=== PATIENT | female | born 1950 | race Caucasian/White ===

== ENCOUNTER 2019-06-03 05:26 | Emergency (ER) | payer BC, MEDICARE ==
[2019-06-03] MEDS ORDERED: Ondansetron INJ* 2 MG/ML VIAL IV ONE (05:46)
[2019-06-03] MEDS ORDERED: NS 0.9% 1000 ML** 1,000 ML IV ONE (05:46)
--- NOTE | 2019-06-03 05:50 | ED ---
Adult Trauma - HPI Summary HPI Summary: Pt. is a 68 y.o female who presents to the ER for evaluation after a fall. Pt. lives along. Pt. states she this morning she slipped and fell while getting out of hte shower. Pt. states she landed on her right shoulder. Pt. states she had immediate right shoulder pain which she states caused her to syncopize. Pt. states she was incontinent of urine. Pt. states when she has extreme pain she always passes out and that has been going on since she was a child pt. states. Pt. denies CP, SOB, abd. pain, numbness, tingling, or weakness, Pt. notes N/V. Hx of asthma otherwise no past medical hx. Sxs are moderate in severity. No current modifying factors. - History of Current Complaint Chief Complaint: EDShoulderClavicleInj Stated Complaint: NAUSEA PER EMS Time Seen by Provider: 06/03/19 05:36 Hx Obtained From: Patient Pain Intensity: 10 - Allergy/Home Medications Allergies/Adverse Reactions: Allergies Allergy/AdvReac Type Severity Reaction Status Date / Time codeine Allergy Unknown Verified 06/03/19 05:42 Reaction Details meperidine [From Demerol] Allergy Unknown Verified 06/03/19 05:42 Reaction Details morphine Allergy Unknown Verified 06/03/19 05:43 Reaction Details pain medications Allergy Unknown Uncoded 06/02/15 03:56 Reaction Details Home Medications: Home Medications Fluticasone HFA 110 mcg(NF) [Flovent HFA 110 mcg(NF)] 1 puff PO DAILY 06/03/19 [ History Confirmed 06/03/19] PMH/Surg Hx/FS Hx/Imm Hx Previously Healthy: Yes Cardiovascular History: Denies: Hx Hypertension Respiratory History: Reports: Hx Chronic Obstructive Pulmonary Disease (COPD) Musculoskeletal History: Reports: Hx Osteoporosis - Surgical History Surgery Procedure, Year, and Place: HYSTERECTOMY; TONSILLECTOMY; CARPAL TUNNEL - BI-LAT; ROTATOR CUFF-LT ; Infectious Disease History: No Infectious Disease History: Denies: Traveled Outside the [place] in Last 30 Days - Family History Known Family History: Positive: Non-Contributory - Social History Occupation: Employed Full-time Lives: With Family Alcohol Use: Daily Substance Use Type: Reports: None Smoking Status (MU): Heavy Every Day Tobacco Smoker Review of Systems Constitutional: Negative Eyes: Negative ENT: Negative Cardiovascular: Negative Negative: Palpitations, Chest Pain Respiratory: Negative Negative: Shortness Of Breath, Cough Positive: Vomiting, Nausea. Negative: Abdominal Pain Genitourinary: Negative Positive: Other - right shoulder pain Positive: Other - abrasion face Positive: Headache, Syncope. Negative: Weakness, Paresthesia, Numbness All Other Systems Reviewed And Are Negative: Yes Physical Exam Triage Information Reviewed: Yes Vital Signs On Initial Exam: Initial Vitals Temp Pulse Resp BP Pulse Ox 97.3 F 78 18 201/104 98 06/03/19 05:31 06/03/19 05:31 06/03/19 05:31 06/03/19 05:31 06/03/19 05:31 Vital Signs Reviewed: Yes Appearance: Positive: Pain Distress - Pt. sitting up in bed, appears in pain but nontoxic. Family member present. Skin: Positive: Warm, Dry Head/Face: Positive: Other - Small abrasion above left eye with mild ecchymosis. Eyes: Positive: Normal, EOMI Neck: Positive: Supple Respiratory/Lung Sounds: Positive: Clear to Auscultation, Breath Sounds Present Cardiovascular: Positive: Normal, RRR Abdomen Description: Positive: Nontender, Soft Musculoskeletal: Positive: Other - Ecchymosis and pain to over distal clavicle. Neurological: Positive: Normal, Alert, Oriented to Person Place, Time, CN Intact II-III Psychiatric: Positive: Anxious - Rapelje Coma Scale Best Eye Response: 4 - Spontaneous Best Motor Response: 6 - Obeys Commands Best Verbal Response: 5 - Oriented Coma Scale Total: 15 Diagnostics - Vital Signs Vital Signs Temp Pulse Resp BP Pulse Ox 06/03/19 05:31 97.3 F 78 18 201/104 98 - Laboratory Result Diagrams: 06/03/19 06:01 06/03/19 06:01 Lab Statement: Any lab studies that have been ordered have been reviewed, and results considered in the medical decision making process. Adult Trauma Course/Dx - Course Course Of Treatment: Pt. presenting after fall and syncopal episode. Pt.'s pain complaint is right shoulder pain and N/V. She is afebrile. BP elevated. Pt. given a dose of iv fluids, zofran and pain medication. ECG done at 0603 shows a sinus rhythm of 71bpm, normal axis, with questionable second degree heart block, no STEMI, ECG discussed with Dr. Little, cardiology, who reviewed ECG and states there is no heart block and that there are just numerous PACs. Labs show WBC 13.6, Na 127 which is pt.'s baseline, Mag of 1.6. CT scans of brain and c spine negative for acute findings per radiology reading. Shoulder xray shows a distal clavicular fx. 0800: Pt. still feeling nauseous. Nurse attempted to ambulate pt. but she felt dizzy and nauseous. Will try compazine. On re-exam pt. is feeling much better. She ambulated in hallway without difficulty. Arm sling in place. Pt. dc home with her sister. To call ortho clinic today for apt. To return to ER if sxs change or worsen. - Diagnoses Differential Diagnosis/HQI/PQRI: Positive: Contusion(s), Fracture, Dislocation Provider Diagnoses: Clavicular fracture, Head injury Discharge - Sign-Out/Discharge Documenting (check all that apply): Patient Departure Patient Received Moderate/Deep Sedation with Procedure: No - Discharge Plan Condition: Improved Disposition: HOME Prescriptions: Prochlorperazine TAB* [Compazine Tab*] 10 mg PO Q6H PRN #12 tab PRN Reason: Nausea Patient Education Materials: Clavicle Fracture (ED), Head Injury (ED) Referrals: Sebastián Garcia MD [Primary Care Provider] - Dov Cullen MD [Medical Doctor] - Additional Instructions: Call the orthopedic clinic today to schedule a close follow up appointment Keep sling in place Ice intermittently Tylenol for pain as directed Increase fluids and rest Change positions slowly Return to ER if symptoms change or worsen - Billing Disposition and Condition Condition: IMPROVED Disposition: Home
[2019-06-03] MEDS ORDERED: Morphine 4 MG/ML VIAL (1 ml) 4 MG/ML VIAL IV ONE (05:56)
[2019-06-03 06:10] LABS: ABS Lymphocytes 0.6 10^3/ul (1.0-4.8); ABS Monocytes 0.6 10^3/ul (0-0.8); ABS Neutrophils 12.4 10^3/ul (1.5-7.7); Eosinophil % 0.1 %; Hematocrit 42 % (35-47); Hemoglobin 14.2 g/dL (12.0-16.0); Lymphocyte % 4.7 %; Mean Corpuscular HGB Conc 34 g/dL (31-36); Mean Corpuscular Hemoglobin 33 pg (27-31); Mean Corpuscular Volume 96 fL (80-97); Mean Platelet Volume 5.9 fL (7.4-10.4); Platelet Count 405 10^3/uL (150-450); Red Blood Count 4.35 10^6 /uL (3.70-4.87); Red Cell Distribution Width 13 % (10-15); White Blood Count 13.6 10^3/uL (3.5-10.8)
[2019-06-03 06:33] LABS: Albumin 4.8 g/dL (3.2-5.2); Albumin/Globulin Ratio 1.9 (1-3); BUN/Creatinine Ratio 17.3 (8-20); Calcium 8.8 mg/dL (8.6-10.3); EGFR African American 141.5 (>60); EGFR Non-African American 116.9 (>60); Globulin 2.5 g/dL (2-4); Magnesium 1.6 mg/dL (1.9-2.7); Potassium 3.8 mmol/L (3.5-5.0); Total Bilirubin 0.5 mg/dL (0.2-1.0); Total Protein 7.3 g/dL (6.4-8.9)
[2019-06-03] MEDS ORDERED: Magnesium Oxide TAB* 400 MG PO ONE (07:29)
[2019-06-03] MEDS ORDERED: PROCHLORPERAZINE INJ 5 MG/ML 2 ML VIAL IV ONE (08:03)
[2019-06-03] MEDS ORDERED: Acetaminophen TAB* 325 MG PO ONE (08:09)
[2019-06-03 09:24] LABS: TSH (Thyroid Stimulating Horm) 3.46 mcIU/mL (0.34-5.60)
[2019-06-03 11:28] VITALS: BP 150/76
[2019-06-05 17:56] LABS: B garinii/B afzelii PCR Negative (Negative); B mayonii PCR Negative (Negative)
== END 2019-06-03 11:28 | disposition home or self-care (01) ==
LOC: ED 05:26
DX: S42.001A Fracture of unspecified part of right clavicle, initial encounter for closed fracture (principal); S09.90XA Unspecified injury of head, initial encounter; W18.2XXA Fall in (into) shower or empty bathtub, initial encounter; Y92.002 Bathroom of unspecified non-institutional (private) residence as the place of occurrence of the external cause; Z88.5 Allergy status to narcotic agent; J44.9 Chronic obstructive pulmonary disease, unspecified; F17.210 Nicotine dependence, cigarettes, uncomplicated; Z79.899 Other long term (current) drug therapy; M85.80 Other specified disorders of bone density and structure, unspecified site; M50.30 Other cervical disc degeneration, unspecified cervical region
CPT/HCPCS: 36415; 70450; 71045; 72125; 80053; 82550; 83735; 84443; 84484; 85025; 87476; 87798; 93005; 96361; 96374; 96375; 99283; A9270-GY; J0780; J2270; J2405

== ENCOUNTER → 2019-06-12 11:41 | Day surgery (SDC) | payer BC, MEDICARE ==
[~2019-06-12 11:41] MED LIST: Acetaminophen IV 1GM/100ML * 100 ML ONE; Acetaminophen TAB* 325 MG PO PRN; Buffered Lidocaine 1% SYRIN* 1 ML/SYRINGE INTRADERM ONE; Bupivacaine 0.25% SDV PF* 10 ML VIAL INJ ONE; DiMENhydriNATE IV* 50 MG/ML VIAL IV PUSH PRN; EPHEDrine (Pressors)* 50 MG/ML VIAL ONE; Esmolol* 10 MG/ML 10 ML (100 mg) ONE; Ketorolac INJ* 30 MG/ML 1 ML VIAL ONE; Labetalol IV* 5 MG/ML 20 ML VIAL IV PUSH ONE; Labetalol IV* 5 MG/ML 20 ML VIAL ONE; Lactated Ringers 1000 ML Bag* 1,000 ML IV SCH; Lidocaine 1% INJ* 10 MG/ML 30 ML SDV ONE; Lidocaine 2% PF * 5 ML VIAL ONE; Metoclopramide IV* 5 MG/ML 2 ML VIAL ONE; Midazolam* 1 MG/ML 2 ML VIAL (2 MG) ONE; Naloxone* 0.4 MG/ML 1 ML VIAL IV PRN; Ondansetron INJ* 2 MG/ML VIAL ONE; Propofol* 10 MG/ML 20 ML BTL ONE; Propofol* 500 MG/50 ML BTL ONE; Rocuronium* 10 MG/ML VIAL ONE; Ropivacaine 0.2% * 2 MG/ML VIAL ONE; Sugammadex * 200 MG/2 ML VIAL IV PUSH ONE; ceFAZolin 2 GM in NS PREMIX(*) 2 GM/100 ML BAG IVPB ONE; fentaNYL* 50 MCG/ML 2 ML VIAL (100 MCG VIAL) IV PRN; hydrALAZINE IV* 20 MG/ML VIAL ONE; oxyCODONE TAB* 5 MG TAB PO PRN
[2019-06-12 16:49] VITALS: BP 116/63
--- NOTE | 2019-06-13 10:31 | OP ---
OPERATIVE REPORT: DATE OF OPERATION: 06/12/19 DATE OF : 48 ATTENDING SURGEON: Naida Muller MD OSTOMY RN: SHANE Bo. An retail event assistant was needed for the entirety of the case to help with positioning, retraction, and was ut ilized throughout all portions of the case. ANESTHESIOLOGIST: Dr. Pritchett. ANESTHESIA: General. PRE-OP DIAGNOSIS: Right lateral third clavicle fracture. POST-OP DIAGNOSIS: Right lateral third clavicle fracture. OPERATIVE PROCEDURE: Open reduction and internal fixation of the right clavicle. COMPLICATIONS: None. ESTIMATED BLOOD LOSS: 25. IMPLANTS: [employer] lateral locking plate with the appropriate length, 2.7 and 3.5 screws. INDICATIONS: Ms. Delacruz is a 68-year-old female who sustained a fall where she just lost her balance and fell landing on the right side. She had immediate pain and deformity. She was diagnosed with a clavicle fracture. She was seen in the office and we talked about treatment options. We told her th at these are fractures that sometimes do not heal due to the blood supply and the movement of the lig aments, about a 40% nonunion rate. She has persistent pain and she is very skinny. The clavicle is very prominent and looks like it ruptured through the deltoid and trapezium and was subcutaneous, but the skin was intact. She elected to proceed with surgical treatment. Risks and benefits were discu ssed at length, including but not limited to bleeding; infection; damage to nerves, vessels, surround ing structures; wound nonhealing; persistent pain; need for further surgery; scarring; stiffness; inc omplete relief of symptoms; nonunion; malunion; plate hardware fracture; subsequent fracture; symptom atic hardware. DESCRIPTION OF PROCEDURE: The patient was greeted in the preoperative area by the attending surgeon. Correct extremity was marked. Consent was confirmed. The patient was brought back to the banner g suite. She was placed in the supine position on the operating room table. She then underwent gene ral anesthesia after which the right arm was prepped and draped in the usual sterile fashion [facility] with chlorhexidine soap, scrub, and alcohol wipe and a final prep with ChloraPrep. After appropriate surgical pause indicating site, side, procedure, administration of antibiotics, a 1 5 blade was used to make an incision in line with the clavicle. There was obvious deformity. The pat ient was very small, so care was taken to make a small incision to begin with. Soft tissues were car efully dissected. She had herniated through the fascial layers and the fracture was fairly subcutane ous. The medial aspect was then identified and exposed. The lateral aspect was identified. There we re numerous pieces, it was very comminuted, and there was a small area of bone on the superior surfac e and larger on the inferior surface. Once the soft tissues were carefully elevated and released, ca re was taken not to cause further fracture. It was provisionally reduced and checked under the C-arm . Lateral locking plate was chosen from [employer]. Once it was positioned, it was found to rolf ortiz, did not match her anatomy that well because she is very small, but care was taken to try to p lace it as laterally as possible. It was secured medially first with a 3.5 nonlocking screw and then lateral screws were then placed, 8 locking 2.7 screws were then placed, it helped to reapproximate t he fracture and then 1 further nonlocking screw was placed medially. The plate did not adhere well t o the bone and the bone quality was not great, so I did not put in the extra screws in there. The fi nal images were obtained and the fracture reduction was found to be acceptable, but plate matching liliana ortiz. The shoulder was taken through range of motion and there was no evidence of impingement or f ailure. The wounds were then copiously irrigated with sterile saline. The wound was closed in layer s. The fascia was closed with 0-Vicryl over the plate. The subcutaneous tissues were closed with 3- 0 Monocryl and skin was closed with running nylon. The wound was injected with ropivacaine. Sterile dressings were applied and a regular sling was applied. She was awoken from anesthesia and transfer red to PACU in stable condition. POSTOPERATIVE PLAN: She will be nonweightbearing. She will only have motion of the elbow, hand, and wrist. I did warn the patient that her bone quality was quite poor and she could fail and she needs to be careful about what she does. We also talked to her about the plate mismatch and she may need this out if it is symptomatic after she has healed. We will see the patient back in 10 to 14 days. D VT prophylaxis was considered but deferred due to no previous personal or family history. She will d ischarged on pain medications. [id number]/[facility] #: [id number]
== END | disposition home or self-care (01) ==
LOC: OR 11:41
PROVIDERS: ATTEND Orthopaedic Surgery
DX: S42.031A Displaced fracture of lateral end of right clavicle, initial encounter for closed fracture (principal); W19.XXXA Unspecified fall, initial encounter; Y92.009 Unspecified place in unspecified non-institutional (private) residence as the place of occurrence of the external cause; Z87.891 Personal history of nicotine dependence; M81.0 Age-related osteoporosis without current pathological fracture
CPT/HCPCS: 76000; C1713; J0360; J0690; J1885; J2250; J2405; J2704; J2765; J2795; J3490

== ENCOUNTER 2023-10-02 10:21 | Inpatient (IN) ==
[~2023-10-02 10:21] MED LIST changes: -Acetaminophen IV 1GM/100ML * 100 ML ONE; -Acetaminophen TAB* 325 MG PO PRN; +Buffered Lidocaine 1% SYRIN 1 ml INTRADERM ONE; -Buffered Lidocaine 1% SYRIN* 1 ML/SYRINGE INTRADERM ONE; -Bupivacaine 0.25% SDV PF* 10 ML VIAL INJ ONE; -DiMENhydriNATE IV* 50 MG/ML VIAL IV PUSH PRN; -EPHEDrine (Pressors)* 50 MG/ML VIAL ONE; -Esmolol* 10 MG/ML 10 ML (100 mg) ONE; +HYDROcodone/ACETAMIN 5/325 mg TAB PO PRN; +Haloperidol 5 mg/ml SDV IV/IM 5 MG/ML AMP IV SLOW PU PRN; -Ketorolac INJ* 30 MG/ML 1 ML VIAL ONE; -Labetalol IV* 5 MG/ML 20 ML VIAL IV PUSH ONE; -Labetalol IV* 5 MG/ML 20 ML VIAL ONE; -Lactated Ringers 1000 ML Bag* 1,000 ML IV SCH; +Lactated Ringers 1000 ml BAG 1,000 ML IV SCH; -Lidocaine 1% INJ* 10 MG/ML 30 ML SDV ONE; -Lidocaine 2% PF * 5 ML VIAL ONE; +Lidocaine 4 MG/ML IV PREMIX 200 MG/50 ML BAG IV SCH; +Metoclopramide 5 MG/ML VIAL (10 mg) IV PRN; -Metoclopramide IV* 5 MG/ML 2 ML VIAL ONE; -Midazolam* 1 MG/ML 2 ML VIAL (2 MG) ONE; +Naloxone 0.4 mg VIAL 0.4 mg/ml 1 ml VIAL IV PRN; -Naloxone* 0.4 MG/ML 1 ML VIAL IV PRN; +Ondansetron 4 mg VIAL 2 MG/ML 2 ml VIAL IV PRN; -Ondansetron INJ* 2 MG/ML VIAL ONE; -Propofol* 10 MG/ML 20 ML BTL ONE; -Propofol* 500 MG/50 ML BTL ONE; -Rocuronium* 10 MG/ML VIAL ONE; -Ropivacaine 0.2% * 2 MG/ML VIAL ONE; +Scopolamine 1 mg/72hr PATCH TRANSDERM ONE; -Sugammadex * 200 MG/2 ML VIAL IV PUSH ONE; -ceFAZolin 2 GM in NS PREMIX(*) 2 GM/100 ML BAG IVPB ONE; +fentaNYL 100 mcg/2 ml 50 MCG/ML VIAL IV PRN; -fentaNYL* 50 MCG/ML 2 ML VIAL (100 MCG VIAL) IV PRN; -hydrALAZINE IV* 20 MG/ML VIAL ONE; -oxyCODONE TAB* 5 MG TAB PO PRN
[2023-10-02] MEDS ORDERED: Scopolamine 1 mg/72hr PATCH ONE (11:45)
[2023-10-02] MEDS ORDERED: Heparin 5000 UNITS/ML 1 mL VIAL ONE (11:46)
[2023-10-02] MEDS ORDERED: fentaNYL 100 mcg/2 ml 50 MCG/ML VIAL ONE ×2 (11:48→18:14)
[2023-10-02] MEDS ORDERED: Rocuronium 50 mg VIAL 10 mg/ml 5 ml VIAL (50 mg) ONE ×2 (11:48→13:48)
[2023-10-02] MEDS ORDERED: Propofol 10 MG/ML 20 ML BTL ONE (11:48)
[2023-10-02] MEDS ORDERED: Lidocaine 2% PF 5 ML VIAL ONE (11:48)
[2023-10-02] MEDS ORDERED: Midazolam 2 mg/2 ml VIAL 1 mg/ml 2 ml VIAL (2 mg) ONE (11:48)
[2023-10-02 12:01] LABS: Rapid COVID-19 Molecular Undetected (Undetected)
[2023-10-02] MEDS ORDERED: Lidocaine 1.5% EPI 1:200,000 30 ML SDV ONE (12:57)
[2023-10-02] MEDS ORDERED: Ertapenem 1 GM in NS 0.9% 50 ML IVPB ONE (13:00)
[2023-10-02] MEDS ORDERED: Etomidate 20 mg/10 ml 2 MG/ML 10 ml VIAL ONE (13:44)
[2023-10-02] MEDS ORDERED: HYDROmorphone 0.5 MG/0.5 ML SYRINGE ONE ×2 (14:10→14:30)
[2023-10-02] MEDS ORDERED: Labetalol IV 5 MG/ML 20 ml VIAL ONE ×2 (14:44→18:01)
[2023-10-02] MEDS ORDERED: Sevoflurane BOTTLE ONE (14:44)
[2023-10-02] MEDS ORDERED: Ondansetron 4 mg VIAL 2 MG/ML 2 ml VIAL ONE ×2 (15:48→21:30)
[2023-10-02] MEDS ORDERED: Dexamethasone IV 4 MG/ML VIAL 1 ml VIAL ONE (15:48)
[2023-10-02] MEDS ORDERED: HYDROmorphone 0.5 MG/0.5 ML SYRINGE IV SLOW PU PRN (17:20)
[2023-10-02] MEDS ORDERED: hydrALAZINE 20 mg/ml 1 ML Vial IV ONE (18:07)
[2023-10-02] MEDS: hydrALAZINE 20 mg/ml 1 ML Vial IV IV SLOW PU PRN (18:08)
[2023-10-02] MEDS: fentaNYL 100 mcg/2 ml 50 MCG/ML VIAL IV PRN ×3 (18:15→19:08)
[2023-10-02] MEDS ORDERED: Metoclopramide 5 MG/ML VIAL (10 mg) ONE (19:00)
[2023-10-02] MEDS ORDERED: Acetaminophen IV 1 GM/100ML 1,000 MG/100 ML BAG IV ONE (19:44)
[2023-10-02 22:53] LABS: ABS Lymphocytes 0.5 10^3/uL (1.0-4.8); ABS Monocytes 0.8 10^3/uL (0.0-0.9); ABS Neutrophils 13.3 10^3/uL (1.5-7.6); ABS Nucleated RBC 0.01 10^3/ul; Hematocrit 34.2 % (35-45); Hemoglobin 11.2 g/dL (11.5-14.3); Lymphocyte % 3.2 %; Mean Corpuscular Hemoglobin 29.7 pg (27-33); Mean Corpuscular Hgb Conc 32.8 g/dL (31-36); Mean Corpuscular Volume 90.7 fL (80-97); Mean Platelet Volume 6.2 fL (7.5-11.2); Platelet Count 459 10^3/uL (150-450); Red Blood Count 3.77 10^6/uL (3.63-4.92); Red Cell Distribution Width 14.3 % (12-17); White Blood Count 14.6 10^3/uL (3.8-11.8)
[2023-10-02 23:09] LABS: Calcium 8.4 mg/dL (8.6-10.3); Creatinine, Serum 0.76 mg/dL (0.51-0.95); Magnesium 1.6 mg/dL (1.9-2.7); Potassium 4.2 mmol/L (3.5-5.0); eGFR CKD-EPI 82.7 (>60)
[2023-10-02] MEDS: Acetaminophen IV 1 GM/100ML 600 MG/60 ML BAG IV SCH ×2 (23:29→23:39)
[2023-10-03] MEDS: hydrALAZINE 20 mg/ml 1 ML Vial IV IV SLOW PU PRN ×2 (02:11→02:24)
[2023-10-03] MEDS ORDERED: hydrALAZINE 20 mg/ml 1 ML Vial IV IV SLOW PU ONE (02:16)
[2023-10-03] MEDS ORDERED: Magnesium Sulf 4 GM/100 ML IV 4,000 MG/100 ML BAG IVPB ONE (02:30)
[2023-10-03] MEDS: Acetaminophen IV 1 GM/100ML 600 MG/60 ML BAG IV SCH ×3 (03:04→12:00)
[2023-10-03] MEDS ORDERED: Lidocaine PATCH 5% PATCH TRANSDERM ONE (04:12)
[2023-10-03] MEDS: Ondansetron 4 mg VIAL 2 MG/ML 2 ml VIAL IV PRN (04:17)
[2023-10-03] MEDS ORDERED: Lidocaine PATCH 5% PATCH ONE (04:21)
[2023-10-03 06:10] LABS: ABS Basophils 0.1 10^3/uL (0.0-0.1); ABS Lymphocytes 0.7 10^3/uL (1.0-4.8); ABS Monocytes 0.7 10^3/uL (0.0-0.9); ABS Neutrophils 11.4 10^3/uL (1.5-7.6); ABS Nucleated RBC 0.01 10^3/ul; Hemoglobin 10.7 g/dL (11.5-14.3); Lymphocyte % 5.4 %; Mean Corpuscular Hemoglobin 30.1 pg (27-33); Mean Corpuscular Hgb Conc 33.3 g/dL (31-36); Mean Corpuscular Volume 90.3 fL (80-97); Mean Platelet Volume 6.4 fL (7.5-11.2); Nucleated Red Blood Cells % 0.1 %/100WBC (0.0-0.8); Platelet Count 440 10^3/uL (150-450); Red Blood Count 3.55 10^6/uL (3.63-4.92); Red Cell Distribution Width 14.3 % (12-17); White Blood Count 12.9 10^3/uL (3.8-11.8)
[2023-10-03 06:28] LABS: Calcium 8.5 mg/dL (8.6-10.3); Creatinine, Serum 0.76 mg/dL (0.51-0.95); Potassium 3.9 mmol/L (3.5-5.0); eGFR CKD-EPI 82.7 (>60)
[2023-10-03] MEDS ORDERED: Lactated Ringers 1000 ml BAG 500 ML IV ONE (07:00)
[2023-10-03] MEDS: Mometasone/Formoter 200/5 MDI INH SCH ×2 (08:43→20:31)
[2023-10-03] MEDS: Enoxaparin 40 MG/0.4 ML SYR SUBCUT SCH (10:41)
[2023-10-03] MEDS ORDERED: Lactated Ringers 1000 ml BAG 1,000 ML IV ONE (14:14)
[2023-10-03 14:40] LABS: Albumin 3.7 g/dL (3.2-5.2)
[2023-10-03 14:59] LABS: Hematocrit 29.9 % (35-45); Hemoglobin 10.2 g/dL (11.5-14.3)
[2023-10-03] MEDS ORDERED: Albumin Human 5% 12.5 GM/250 ML BTL IV ONE (15:56)
[2023-10-04] MEDS: Ondansetron 4 mg VIAL 2 MG/ML 2 ml VIAL IV PRN ×2 (01:01→15:21)
[2023-10-04 04:21] LABS: ABS Lymphocytes 0.6 10^3/uL (1.0-4.8); ABS Monocytes 0.5 10^3/uL (0.0-0.9); ABS Neutrophils 9.8 10^3/uL (1.5-7.6); Eosinophil % 0.1 %; Hematocrit 27.2 % (35-45); Hemoglobin 9.4 g/dL (11.5-14.3); Lymphocyte % 5.3 %; Mean Corpuscular Hemoglobin 30.5 pg (27-33); Mean Corpuscular Hgb Conc 34.4 g/dL (31-36); Mean Corpuscular Volume 88.8 fL (80-97); Mean Platelet Volume 6.2 fL (7.5-11.2); Platelet Count 336 10^3/uL (150-450); Red Blood Count 3.06 10^6/uL (3.63-4.92); Red Cell Distribution Width 14.8 % (12-17); White Blood Count 10.9 10^3/uL (3.8-11.8)
[2023-10-04 04:36] LABS: Creatinine, Serum 1.09 mg/dL (0.51-0.95); Magnesium 2.6 mg/dL (1.9-2.7); Potassium 3.9 mmol/L (3.5-5.0); eGFR CKD-EPI 53.6 (>60)
[2023-10-04] MEDS: Mometasone/Formoter 200/5 MDI INH SCH ×2 (07:06→20:07)
[2023-10-04] MEDS: Enoxaparin 40 MG/0.4 ML SYR SUBCUT SCH (08:36)
[2023-10-04] MEDS: Albuterol HFA INHALER 8 gm MDI INH PRN (14:07)
[2023-10-04] MEDS ORDERED: fentaNYL 100 mcg/2 ml 50 MCG/ML VIAL IV SLOW PU ONE (15:24)
[2023-10-04] MEDS ORDERED: Dextrose 50% Syringe 50 ml 25 GM/50 ML SYRINGE IV PUSH PRN (22:32)
[2023-10-05 04:40] LABS: ABS Lymphocytes 0.5 10^3/uL (1.0-4.8); ABS Monocytes 0.5 10^3/uL (0.0-0.9); ABS Neutrophils 8.1 10^3/uL (1.5-7.6); Eosinophil % 0.2 %; Hematocrit 29.5 % (35-45); Lymphocyte % 5.6 %; Mean Corpuscular Hemoglobin 30.4 pg (27-33); Mean Corpuscular Hgb Conc 33.8 g/dL (31-36); Mean Platelet Volume 6.7 fL (7.5-11.2); Platelet Count 328 10^3/uL (150-450); Red Blood Count 3.28 10^6/uL (3.63-4.92); Red Cell Distribution Width 14.6 % (12-17); White Blood Count 9.1 10^3/uL (3.8-11.8)
[2023-10-05 04:55] LABS: Creatinine, Serum 0.94 mg/dL (0.51-0.95); Magnesium 2.3 mg/dL (1.9-2.7); Potassium 4.3 mmol/L (3.5-5.0); eGFR CKD-EPI 64.1 (>60)
[2023-10-05] MEDS: Mometasone/Formoter 200/5 MDI INH SCH ×2 (07:42→20:53)
[2023-10-05] MEDS ORDERED: Enoxaparin 40 MG/0.4 ML SYR SUBCUT SCH (11:00)
[2023-10-05] MEDS ORDERED: Lactated Ringers 1000 ml BAG 1,000 ML IV ONE (13:39)
[2023-10-05] MEDS: D5LR 1000 ml BAG 1,000 ML IV SCH (18:57)
[2023-10-05] MEDS: ACETAMINOPHEN IV SCH (20:29)
[2023-10-06] MEDS: ACETAMINOPHEN IV SCH ×4 (02:32→19:49)
[2023-10-06] MEDS: D5LR 1000 ml BAG 1,000 ML IV SCH ×2 (04:58→17:07)
[2023-10-06 06:20] LABS: ABS Eosinophils 0.1 10^3/uL (0.0-0.5); ABS Lymphocytes 0.3 10^3/uL (1.0-4.8); ABS Monocytes 0.3 10^3/uL (0.0-0.9); ABS Neutrophils 2.1 10^3/uL (1.5-7.6); Hematocrit 26.2 % (35-45); Lymphocyte % 11.3 %; Mean Corpuscular Hemoglobin 30.6 pg (27-33); Mean Corpuscular Hgb Conc 34.3 g/dL (31-36); Mean Corpuscular Volume 89.1 fL (80-97); Mean Platelet Volume 6.8 fL (7.5-11.2); Platelet Count 302 10^3/uL (150-450); Red Blood Count 2.94 10^6/uL (3.63-4.92); Red Cell Distribution Width 14.6 % (12-17); White Blood Count 2.9 10^3/uL (3.8-11.8)
[2023-10-06 06:38] LABS: Calcium 7.8 mg/dL (8.6-10.3); Creatinine, Serum 0.74 mg/dL (0.51-0.95); Magnesium 1.9 mg/dL (1.9-2.7); Potassium 4.1 mmol/L (3.5-5.0); eGFR CKD-EPI 85.4 (>60)
[2023-10-06] MEDS: Ondansetron 4 mg VIAL 2 MG/ML 2 ml VIAL IV PRN (08:32)
[2023-10-06] MEDS ORDERED: HYDROmorphone 0.5 MG/0.5 ML SYRINGE IV PRN (09:27)
[2023-10-06] MEDS: Albuterol HFA INHALER 8 gm MDI INH PRN (10:52)
[2023-10-06] MEDS: Mometasone/Formoter 200/5 MDI INH SCH ×2 (10:53→20:16)
[2023-10-06] MEDS: CMC:Methylnaltrexone SQ (NF) 12 MG/0.6 ML VIAL SUBCUT SCH (11:03)
[2023-10-06] MEDS: Enoxaparin 30 MG/0.3 ML SYR SUBCUT SCH (13:32)
[2023-10-06] MEDS ORDERED: Vancomycin 1,000 MG in NS 0.9% 250 ml 250 ML IVPB ONE (14:45)
[2023-10-06] MEDS ORDERED: Vancomycin per Pharmacy 1 EA NOTE FOLLOW UP SCH (15:00)
[2023-10-06] MEDS ORDERED: Iohexol 350 (CONTRAST) 500 ML MDV IV ONE (15:35)
[2023-10-06 15:44] LABS: Urine Appearance Cloudy; Urine Bilirubin Negative (Negative); Urine Blood Negative (Negative); Urine Color Yellow; Urine Glucose Negative (Negative); Urine Ketones Negative (Negative); Urine Nitrite Negative (Negative); Urine Protein 2+(100 mg/dL) (Negative); Urine Specific Gravity 1.031 (1.002-1.030); Urine Urobilinogen Negative (Negative)
[2023-10-06 15:51] LABS: Urine Bacteria Absent (Absent); Urine Red Blood Cell Trace(0-2/hpf) (Absent); Urine Squamous Epithelial Cell Present (Absent); Urine White Blood Cell Trace(0-5/hpf) (Absent)
[2023-10-06] MEDS: Cefepime 2 GM in Dextrose 2 GM/50 ML BAG IV SCH (17:07)
[2023-10-07] MEDS: D5LR 1000 ml BAG 1,000 ML IV SCH ×3 (00:36→13:12)
[2023-10-07] MEDS: Ondansetron 4 mg VIAL 2 MG/ML 2 ml VIAL IV PRN ×2 (02:45→15:13)
[2023-10-07] MEDS: ACETAMINOPHEN IV SCH ×4 (02:47→21:53)
[2023-10-07] MEDS: Cefepime 2 GM in Dextrose 2 GM/50 ML BAG IV SCH ×2 (03:16→16:28)
[2023-10-07 04:26] LABS: ABS Eosinophils 0.1 10^3/uL (0.0-0.5); ABS Lymphocytes 0.4 10^3/uL (1.0-4.8); ABS Monocytes 0.5 10^3/uL (0.0-0.9); ABS Neutrophils 2.9 10^3/uL (1.5-7.6); Eosinophil % 2.6 %; Hematocrit 26.6 % (35-45); Lymphocyte % 9.7 %; Mean Corpuscular Hemoglobin 30.5 pg (27-33); Mean Corpuscular Hgb Conc 33.9 g/dL (31-36); Mean Platelet Volume 6.5 fL (7.5-11.2); Nucleated Red Blood Cells % 0.1 %/100WBC (0.0-0.8); Platelet Count 332 10^3/uL (150-450); Red Blood Count 2.95 10^6/uL (3.63-4.92); Red Cell Distribution Width 14.7 % (12-17); White Blood Count 3.9 10^3/uL (3.8-11.8)
[2023-10-07 04:43] LABS: Calcium 7.7 mg/dL (8.6-10.3); Creatinine, Serum 0.63 mg/dL (0.51-0.95); eGFR CKD-EPI 93.6 (>60)
[2023-10-07] MEDS: Mometasone/Formoter 200/5 MDI INH SCH ×2 (08:11→19:41)
[2023-10-07] MEDS: Albuterol HFA INHALER 8 gm MDI INH PRN (08:12)
[2023-10-07] MEDS: Enoxaparin 30 MG/0.3 ML SYR SUBCUT SCH (12:29)
[2023-10-07] MEDS ORDERED: Metoclopramide 5 MG/ML VIAL (10 mg) IV SLOW PU ONE (19:22)
[2023-10-08] MEDS: ACETAMINOPHEN IV SCH ×4 (02:15→20:27)
[2023-10-08] MEDS: Cefepime 2 GM in Dextrose 2 GM/50 ML BAG IV SCH ×2 (03:37→17:00)
[2023-10-08 06:35] LABS: ABS Eosinophils 0.1 10^3/uL (0.0-0.5); ABS Lymphocytes 0.4 10^3/uL (1.0-4.8); ABS Monocytes 0.6 10^3/uL (0.0-0.9); ABS Neutrophils 4.3 10^3/uL (1.5-7.6); Eosinophil % 1.7 %; Hematocrit 29.5 % (35-45); Hemoglobin 9.8 g/dL (11.5-14.3); Lymphocyte % 8.1 %; Mean Corpuscular Hemoglobin 30.2 pg (27-33); Mean Corpuscular Hgb Conc 33.1 g/dL (31-36); Mean Corpuscular Volume 91.3 fL (80-97); Mean Platelet Volume 6.6 fL (7.5-11.2); Platelet Count 350 10^3/uL (150-450); Red Blood Count 3.23 10^6/uL (3.63-4.92); White Blood Count 5.5 10^3/uL (3.8-11.8)
[2023-10-08 06:47] LABS: ALT 13 U/L (7-52); Albumin 2.8 g/dL (3.2-5.2); Albumin/Globulin Ratio 1.3 (1-3); Alkaline Phosphatase 78 U/L (35-149); Anion Gap 6 mmol/L (2-16); Blood Urea Nitrogen 11 mg/dL (6-24); CO2 Carbon Dioxide 22 mmol/L (22-32); Calcium 7.6 mg/dL (8.6-10.3); Chloride 99 mmol/L (101-111); Creatinine, Serum 0.61 mg/dL (0.51-0.95); Globulin 2.2 g/dL (2-4); Glucose 102 mg/dL (70-100); Magnesium 1.4 mg/dL (1.9-2.7); Sodium 127 mmol/L (135-145); Total Bilirubin 0.5 mg/dL (0.2-1.0); eGFR CKD-EPI 94.3 (>60)
[2023-10-08] MEDS: CMC:Methylnaltrexone SQ (NF) 12 MG/0.6 ML VIAL SUBCUT SCH (08:17)
[2023-10-08] MEDS: Mometasone/Formoter 200/5 MDI INH SCH ×2 (08:20→20:07)
[2023-10-08 09:09] LABS: Potassium Redraw 4.1 mmol/L (3.5-5.0)
[2023-10-08] MEDS ORDERED: Magnesium Sulfate IV 1GM/100ML 1 GM/100 ML BAG IV ONE (09:30)
[2023-10-08 10:30] LABS: Phosphorus 3.4 mg/dL (2.5-5.0)
[2023-10-08] MEDS ORDERED: Magnesium Sulfate 2 gm BAG 2 GM/50 ML BAG IVPB ONE (10:31)
[2023-10-08] MEDS: Enoxaparin 30 MG/0.3 ML SYR SUBCUT SCH (13:01)
[2023-10-08] MEDS: Ondansetron 4 mg VIAL 2 MG/ML 2 ml VIAL IV PRN ×2 (18:03→18:24)
[2023-10-08] MEDS ORDERED: Calcium Carb (TUMS) 500 mg CHEW TAB PO PRN (23:44)
[2023-10-09] MEDS: ACETAMINOPHEN IV SCH ×4 (01:55→20:17)
[2023-10-09] MEDS: Cefepime 2 GM in Dextrose 2 GM/50 ML BAG IV SCH ×2 (03:24→15:58)
[2023-10-09] MEDS: Mometasone/Formoter 200/5 MDI INH SCH ×2 (07:47→19:55)
[2023-10-09 09:32] LABS: Calcium 7.6 mg/dL (8.6-10.3); Creatinine, Serum 0.67 mg/dL (0.51-0.95); Magnesium 1.9 mg/dL (1.9-2.7); eGFR CKD-EPI 92.2 (>60)
[2023-10-09] MEDS ORDERED: ceFAZolin 2 GM in NS PREMIX 2 GM/100 ML BAG IVPB ONE (10:52)
[2023-10-09] MEDS ORDERED: ceFAZolin SYR FLUSH 1 GM/10 ML for pocket flush (cardiology) FLUSH ONE (10:52)
[2023-10-09] MEDS: Enoxaparin 30 MG/0.3 ML SYR SUBCUT SCH (12:21)
[2023-10-10] MEDS: ACETAMINOPHEN IV SCH ×4 (02:35→19:50)
[2023-10-10] MEDS ORDERED: NS 0.9% 1000 ml BAG 1,000 ML IV SCH (04:00)
[2023-10-10] MEDS: Cefepime 2 GM in Dextrose 2 GM/50 ML BAG IV SCH ×2 (04:15→15:29)
[2023-10-10 05:34] LABS: ABS Basophils 0.1 10^3/uL (0.0-0.1); ABS Eosinophils 0.1 10^3/uL (0.0-0.5); ABS Lymphocytes 0.9 10^3/uL (1.0-4.8); ABS Monocytes 0.8 10^3/uL (0.0-0.9); ABS Neutrophils 5.9 10^3/uL (1.5-7.6); Eosinophil % 1.5 %; Hematocrit 26.6 % (35-45); Hemoglobin 9.3 g/dL (11.5-14.3); Lymphocyte % 11.7 %; Mean Corpuscular Hemoglobin 30.6 pg (27-33); Mean Corpuscular Volume 87.3 fL (80-97); Mean Platelet Volume 6.5 fL (7.5-11.2); Platelet Count 479 10^3/uL (150-450); Red Blood Count 3.04 10^6/uL (3.63-4.92); Red Cell Distribution Width 15.1 % (12-17); White Blood Count 7.8 10^3/uL (3.8-11.8)
[2023-10-10 05:49] LABS: Calcium 7.4 mg/dL (8.6-10.3); Creatinine, Serum 0.55 mg/dL (0.51-0.95); Magnesium 1.5 mg/dL (1.9-2.7); Potassium 3.5 mmol/L (3.5-5.0); eGFR CKD-EPI 96.7 (>60)
[2023-10-10] MEDS ORDERED: Magnesium Sulf 4 GM/100 ML IV 4,000 MG/100 ML BAG IVPB ONE (07:11)
[2023-10-10] MEDS: Ondansetron 4 mg VIAL 2 MG/ML 2 ml VIAL IV PRN (07:39)
[2023-10-10] MEDS ORDERED: ceFAZolin 2 GM in NS PREMIX 2 GM/100 ML BAG IVPB ONE (08:00)
[2023-10-10] MEDS ORDERED: ceFAZolin SYR FLUSH 1 GM/10 ML for pocket flush (cardiology) FLUSH ONE (08:00)
[2023-10-10] MEDS ORDERED: Midazolam 10 mg/10 ml VIAL 1 mg/ml 10 ml VIAL (10 mg) IV SLOW PU ONE (08:15)
[2023-10-10] MEDS ORDERED: fentaNYL 100 mcg/2 ml 50 MCG/ML VIAL IV SLOW PU ONE (08:15)
[2023-10-10] MEDS: Mometasone/Formoter 200/5 MDI INH SCH ×2 (08:23→21:13)
[2023-10-10] MEDS ORDERED: fentaNYL 100 mcg/2 ml 50 MCG/ML VIAL ONE (10:55)
[2023-10-10] MEDS ORDERED: Midazolam 5 mg/5 ml VIAL 1 mg/ml 5 ml VIAL (5 mg) ONE (10:55)
[2023-10-10] MEDS ORDERED: Lidocaine 1% VIAL 10 MG/ML 30 ML VIAL ONE (10:55)
[2023-10-10] MEDS ORDERED: Metoprolol Tartrate 5 mg VIAL 5 ml VIAL (1 mg/ml) ONE (11:52)
[2023-10-10] MEDS: CMC:Methylnaltrexone SQ (NF) 12 MG/0.6 ML VIAL SUBCUT SCH (13:09)
[2023-10-10] MEDS: Enoxaparin 30 MG/0.3 ML SYR SUBCUT SCH (13:26)
[2023-10-10 15:12] LABS: Calcium 7.6 mg/dL (8.6-10.3); Creatinine, Serum 0.57 mg/dL (0.51-0.95); Magnesium 2.7 mg/dL (1.9-2.7); eGFR CKD-EPI 95.9 (>60)
[2023-10-11] MEDS: ACETAMINOPHEN IV SCH ×3 (02:34→14:35)
[2023-10-11] MEDS: Cefepime 2 GM in Dextrose 2 GM/50 ML BAG IV SCH (03:04)
[2023-10-11] MEDS: Mometasone/Formoter 200/5 MDI INH SCH (07:12)
[2023-10-11 08:46] LABS: Hematocrit 29.9 % (35-45); Hemoglobin 10.1 g/dL (11.5-14.3)
[2023-10-11] MEDS: Enoxaparin 30 MG/0.3 ML SYR SUBCUT SCH (11:28)
[2023-10-11 18:56] VITALS: BP 102/51
== END 2023-10-11 14:38 | disposition home or self-care (01) | DRG 221 ==
LOC: AA 10:21 → SSU 22:12 → ICU 10-03 02:27 → SSU 10-05 18:41 → MEDTELE 10-10 12:43
PROVIDERS: ADMIT Surgery; ATTEND Surgery